=== PATIENT | male | born 1980 | race African-American/Black ===

== ENCOUNTER 2020-03-03 05:11 | Emergency (ER) | payer MEDICAID ==
[~2020-03-03] VITALS: Ht 188 cm; Wt 91.0 kg
[2020-03-03] MEDS ORDERED: ACETAMINOPHEN 325MG TABLET PO STA (07:02)
[2020-03-03 07:30] VITALS: BP 138/87
[2020-03-03 08:05] LABS: BASOPHILS % 0.4 % (0.0-2.0); CHLORIDE 107 mEq/L (98-107); EOSINOPHILS % 1.2 % (0.0-5.0); HEMATOCRIT. 52.4 % (42.0-52.0); LYMPHOCYTES % 34.3 % (20.0-50.0); MEAN CORPUSCULAR HEMOGLOBIN 34.5 pg (28.0-32.0); MEAN CORPUSCULAR VOLUME 100.6 fL (80.0-94.0); MEAN PLATELET VOLUME 7.6 fl (7.4-10.4); MONOCYTES % 9.8 % (2.0-8.0); NEUTROPHILS % 54.3 % (40.0-76.0); PLATELET 279 x1000/uL (130-400); RED BLOOD CELL COUNT 5.21 mill/uL (4.7-6.1); RED CELL DISTRIBUTION WIDTH 13.7 % (11.6-14.6)
[2020-03-03 08:25] LABS: PROTHROMBIN TIME 10.6 sec (9.6-11.0)
== END 2020-03-03 07:40 | disposition left against medical advice (07) ==
LOC: ER 05:11
DX: R07.89 Other chest pain (principal); I11.9 Hypertensive heart disease without heart failure; F17.210 Nicotine dependence, cigarettes, uncomplicated; Z71.6 Tobacco abuse counseling
CPT/HCPCS: 36415; 80053; 83880; 84484; 85025; 93005; 99284; 99406

== ENCOUNTER 2022-06-29 18:48 | Emergency (ER) | payer BC, MEDICAID ==
[~2022-06-29] VITALS: Ht 182.9 cm; Wt 84.0 kg
[2022-06-29 18:56] VITALS: BP 180/110
[2022-06-29] MEDS ORDERED: LORAZEPAM 0.5MG TABLET PO ONE (19:15)
== END 2022-06-29 21:05 | disposition left against medical advice (07) ==
LOC: ER 18:48
DX: Z53.21 Procedure and treatment not carried out due to patient leaving prior to being seen by health care provider (principal)
CPT/HCPCS: 93005; 99283